=== PATIENT | female | born 2005 | race Hispanic/Latino ===

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

== ENCOUNTER 2025-01-26 09:12 | Emergency (ER) | payer OTHER ==
[~2025-01-26] VITALS: Ht 167.6 cm; Wt 103.5 kg
[~2025-01-26 09:12] MED LIST: ONDANSETRON ODT4 MG PO
[2025-01-26 09:27] VITALS: PULSE 81; RESP 18; TEMP 98.7
[2025-01-26 12:10] VITALS: BP 126/70; PULSE 82; RESP 18; TEMP 97.8; O2SAT 99
== END 2025-01-26 12:10 | disposition home or self-care (01) ==
LOC: FSED 09:18
DX: O26.891 Other specified pregnancy related conditions, first trimester (principal); R10.30 Lower abdominal pain, unspecified
CPT/HCPCS: 76801; 93976; 99284